=== PATIENT | male | born 1955 | race Caucasian/White ===

== ENCOUNTER 2017-11-07 12:38 | Emergency (ER) | payer BC ==
--- NOTE | 2017-11-07 13:16 | EDM.PDOC ---
ED HPI GENERAL MEDICAL PROBLEM - General Chief Complaint: Gastrointestinal Problem Stated Complaint: DIZZINESS/NAUSEA Time Seen by Provider: 11/07/17 13:10 Source of Information: Reports: Patient History Limitations: Reports: No Limitations - History of Present Illness INITIAL COMMENTS - FREE TEXT/NARRATIVE: Patient is a 62-year-old male with a history of hypertension, rheumatoid arthritis, and also chronic alcohol use who presents to the ED complaining of diarrhea, nausea, and dizziness started yesterday at noon. States she's had multiple episodes of diarrhea with no obvious blood present. States his stomach does feel irritated at times. He has been eating as normal and notes that his appetite is mildly poor. There's been no recent sick exposures. No changes in medications. He has no history of C. difficile or ingestion of any bad or questionable food. States the dizziness is worse with standing relieved with laying down. Denies any fever, chest pain, shortness of breath, or dysuria. There's been no documented rash. - Related Data Allergies Allergy/AdvReac Type Severity Reaction Status Date / Time abatacept [From Orencia] Allergy Rash Verified 11/07/17 12:58 Home Meds: Home Meds Celecoxib [CeleBREX] 200 mg PO DAILY 11/07/17 [History] Folic Acid 1 mg PO DAILY 11/07/17 [History] Losartan Potassium 25 mg PO DAILY 11/07/17 [History] Methotrexate 2.5 mg PO WEEKLY 11/07/17 [History] Ondansetron [Zofran ODT] 4 mg PO Q6H PRN #12 tab.dis 11/07/17 [Rx] Past Medical History Cardiovascular History: Reports: Hypertension Gastrointestinal History: Reports: Helicobacter Pylori Musculoskeletal History: Reports: RA Social & Family History - Family History Family Medical History: Noncontributory - Tobacco Use Smoking Status *Q: Current Every Day Smoker Years of Tobacco use: 50 Packs/Tins Daily: 1 Second Hand Smoke Exposure: No - Caffeine Use Caffeine Use: Reports: Coffee, Soda - Alcohol Use Days Per Week of Alcohol Use: 7 Number of Drinks Per Day: 4 Total Drinks Per Week: 28 Date of Last Drink: 11/06/17 Time of Last Drink: 15:00 - Recreational Drug Use Recreational Drug Use: No ED ROS GENERAL - Review of Systems Review Of Systems: ROS reveals no pertinent complaints other than HPI. ED EXAM, GI/ABD - Physical Exam Exam: See Below Exam Limited By: No Limitations General Appearance: Alert, WD/WN, No Apparent Distress Ears: Hearing Grossly Normal Nose: Normal Inspection Throat/Mouth: Normal Inspection, Normal Voice, No Airway Compromise, Other ( Mildly dry oral mucosa) Neck: Normal Inspection, Supple Respiratory/Chest: No Respiratory Distress, Lungs Clear, Normal Breath Sounds, No Accessory Muscle Use Cardiovascular: Normal Peripheral Pulses, Regular Rate, Rhythm GI/Abdominal Exam: Normal Bowel Sounds, Soft, Non-Tender, No Organomegaly, No Distention Back Exam: Normal Inspection Extremities: Normal Inspection Neurological: Alert, Oriented, CN II-XII Intact, Normal Cognition, No Motor/ Sensory Deficits Psychiatric: Normal Affect, Normal Mood Skin Exam: Warm, Dry, Intact, Normal Color Course - Vital Signs Last Recorded V/S: Last Vital Signs Temp 98.1 F 11/07/17 12:51 Pulse 101 H 11/07/17 12:51 Resp 18 11/07/17 12:51 BP 129/107 H 11/07/17 12:51 Pulse Ox 94 L 11/07/17 12:51 Orthostatic Blood Pressure [ 151/101 Standing] Orthostatic Blood Pressure [ 150/98 Sitting] Orthostatic Blood Pressure [ 150/101 Supine] - Orders/Labs/Meds Orders: Active Orders 24 hr Category Date Time Status EKG Documentation Completion [RC] STAT Care 11/07/17 13:30 Active Hemoccult [Fecal Occult Blood Collection] [RC] Care 11/07/17 13:34 Active ASDIRECTED Orthostatic Vital Signs [RC] ASDIRECTED Care 11/07/17 13:30 Active Peripheral IV Care [RC] . DIRECTED Care 11/07/17 13:32 Active C DIFFICILE BY PCR W/NAP1 [MOLEC] Stat Lab 11/07/17 13:32 Ordered NOROVIRUS GROUP 1 & 2 RT-PCR Stat Lab 11/07/17 13:32 Ordered Peripheral IV Insertion Adult [OM.PC] Stat Oth 11/07/17 13:30 Ordered Labs: Laboratory Tests 11/07/17 11/07/17 11/07/17 Range/Units 13:15 13:20 13:20 WBC 10.16 H (4.23-9.07) K/mm3 RBC 5.15 (4.63-6.08) M/mm3 Hgb 15.9 (13.7-17.5) gm/L Hct 46.4 (40.1-51.0) % MCV 90.1 (79.0-92.2) fl MCH 30.9 (25.7-32.2) pg MCHC 34.3 (32.2-35.5) g/dl RDW Std Deviation 46.1 H (35.1-43.9) fL Plt Count 274 (163-337) K/mm3 MPV 9.8 (9.4-12.3) fl Neut % (Auto) 63.1 (34.0-67.9) % Lymph % (Auto) 25.3 (21.8-53.1) % [place] % (Auto) 8.1 (5.3-12.2) % Eos % (Auto) 3.0 (0.8-7.0) Baso % (Auto) 0.3 (0.1-1.2) % Neut # (Auto) 6.42 H (1.78-5.38) K/mm3 Lymph # (Auto) 2.57 (1.32-3.57) K/mm3 [place] # (Auto) 0.82 (0.30-0.82) K/mm3 Eos # (Auto) 0.30 (0.04-0.54) K/mm3 Baso # (Auto) 0.03 (0.01-0.08) K/mm3 PT 10.0 (8.0-13.0) SECONDS INR 0.92 APTT 28 (22-36) SECONDS Sodium (136-145) mEq/L Potassium (3.5-5.1) mEq/L Chloride (98-107) mEq/L Carbon Dioxide (21-32) mEq/L Anion Gap (5-15) BUN (7-18) mg/dL Creatinine (0.7-1.3) mg/dL Est Cr Clr Drug Dosing mL/min Estimated GFR (MDRD) (>60) mL/min BUN/Creatinine Ratio (14-18) Glucose (80-115) mg/dL Lactic Acid (0.4-2.0) mmol/L Calcium (8.5-10.1) mg/dL Magnesium (1.8-2.4) mg/dl Total Bilirubin (0.2-1.0) mg/dL AST (15-37) U/L ALT (16-63) U/L Alkaline Phosphatase (46-116) U/L Troponin I (0.00-0.056) ng/mL Total Protein (6.4-8.2) g/dl Albumin (3.4-5.0) g/dl Globulin gm/dL Albumin/Globulin Ratio (1-2) Lipase (73-393) U/L Urine Color Yellow (Yellow) Urine Appearance Clear (Clear) Urine pH 7.0 (5.0-8.0) Ur Specific [place] 1.020 (1.005-1.030) Urine Protein Negative (Negative) Urine Glucose (UA) Negative (Negative) Urine Ketones Negative (Negative) Urine Occult Blood Negative (Negative) Urine Nitrite Negative (Negative) Urine Bilirubin Negative (Negative) Urine Urobilinogen 0.2 (0.2-1.0) Ur Leukocyte Esterase Negative (Negative) Urine RBC 0-5 (0-5) /hpf Urine WBC 0-5 (0-5) /hpf Ur Epithelial Cells 0-5 (0-5) /hpf Urine Bacteria Occasional (FEW) /hpf Urine Mucus Not seen (FEW) /hpf 11/07/17 11/07/17 Range/Units 13:20 13:45 WBC (4.23-9.07) K/mm3 RBC (4.63-6.08) M/mm3 Hgb (13.7-17.5) gm/L Hct (40.1-51.0) % MCV (79.0-92.2) fl MCH (25.7-32.2) pg MCHC (32.2-35.5) g/dl RDW Std Deviation (35.1-43.9) fL Plt Count (163-337) K/mm3 MPV (9.4-12.3) fl Neut % (Auto) (34.0-67.9) % Lymph % (Auto) (21.8-53.1) % [place] % (Auto) (5.3-12.2) % Eos % (Auto) (0.8-7.0) Baso % (Auto) (0.1-1.2) % Neut # (Auto) (1.78-5.38) K/mm3 Lymph # (Auto) (1.32-3.57) K/mm3 [place] # (Auto) (0.30-0.82) K/mm3 Eos # (Auto) (0.04-0.54) K/mm3 Baso # (Auto) (0.01-0.08) K/mm3 PT (8.0-13.0) SECONDS INR APTT (22-36) SECONDS Sodium 134 L (136-145) mEq/L Potassium 4.2 (3.5-5.1) mEq/L Chloride 100 (98-107) mEq/L Carbon Dioxide 25 (21-32) mEq/L Anion Gap 13.2 (5-15) BUN 15 (7-18) mg/dL Creatinine 0.8 (0.7-1.3) mg/dL Est Cr Clr Drug Dosing 95.74 mL/min Estimated GFR (MDRD) > 60 (>60) mL/min BUN/Creatinine Ratio 18.8 H (14-18) Glucose 100 (80-115) mg/dL Lactic Acid 1.7 (0.4-2.0) mmol/L Calcium 9.4 (8.5-10.1) mg/dL Magnesium 2.0 (1.8-2.4) mg/dl Total Bilirubin 0.3 (0.2-1.0) mg/dL AST 21 (15-37) U/L ALT 26 (16-63) U/L Alkaline Phosphatase 127 H (46-116) U/L Troponin I < 0.017 (0.00-0.056) ng/mL Total Protein 7.5 (6.4-8.2) g/dl Albumin 3.7 (3.4-5.0) g/dl Globulin 3.8 gm/dL Albumin/Globulin Ratio 1.0 (1-2) Lipase 130 (73-393) U/L Urine Color (Yellow) Urine Appearance (Clear) Urine pH (5.0-8.0) Ur Specific [place] (1.005-1.030) Urine Protein (Negative) Urine Glucose (UA) (Negative) Urine Ketones (Negative) Urine Occult Blood (Negative) Urine Nitrite (Negative) Urine Bilirubin (Negative) Urine Urobilinogen (0.2-1.0) Ur Leukocyte Esterase (Negative) Urine RBC (0-5) /hpf Urine WBC (0-5) /hpf Ur Epithelial Cells (0-5) /hpf Urine Bacteria (FEW) /hpf Urine Mucus (FEW) /hpf Meds: Medications Discontinued Medications Generic Name Dose Route Start Last Admin Trade Name Freq PRN Reason Stop Dose Admin Sodium Chloride 1,000 mls @ 1,000 mls/hr 11/07/17 13:30 11/07/17 13:55 Normal Saline IV 11/07/17 14:29 1,000 mls/hr .BOLUS STA Administration Ondansetron HCl 4 mg 11/07/17 13:36 11/07/17 13:56 Zofran IVPUSH 11/07/17 13:37 4 mg ONETIME ONE Administration Sodium Chloride 10 ml 11/07/17 13:30 11/07/17 13:55 Saline Flush FLUSH 10 ml ASDIRECTED PRN Administration Keep Vein Open - Re-Assessments/Exams Free Text/Narrative Re-Assessment/Exam: IV established with normal saline bolus. Initial labs and studies will include CBC, chem 14, coag studies, magnesium, lactic acid, troponin, UA, stool studies , and EKG. Orthostatic vital signs will be obtained as well. IV bolus of normal saline has been ordered and zofran 4mg IVP. Orthostatic vital signs were positive. Labs reviewed: CBC essentially normal. Chemistry panel revealed sodium 134 otherwise unremarkable. Alkaline phosphatase status was elevated at 127. Troponin less than 0.017. Lactic acid 1.7. Magnesium 2.0. Lipase 130. UA concerning findings. 11/07/17 15:28 Per nursing staff patient feels a lot better after receiving fluids. Vital signs are normalized. Orthostatics were negative. Patient is wishing to go home. Unable to provide a stool sample. States it's all air at this point. We'll discharge patient home with instructions. Most likely etiology of current complaint is viral. Departure - Departure Time of Disposition: 15:29 Disposition: Home, Self-Care 01 Condition: Good Clinical Impression: Abdominal pain, Diarrhea, Viral diarrhea - Discharge Information Prescriptions: Ondansetron [Zofran ODT] 4 mg PO Q6H PRN #12 tab.dis PRN Reason: Nausea/Vomiting Instructions: Viral Gastroenteritis, Adult, [id number], Dehydration, Adult, [id number] Referrals: PCP,None [Primary Care Provider] - Forms: ED Department Discharge Additional Instructions: As discussed etiology of current complaint is viral most likely and will run its course improving over the next few days. Treatment will be push the fluids gatorade, powerade, pedialyte, and water. Refrain from any fruit juices, raw vegetables or fruits, spicy foods, or dairy products. Stick with a bland diet such as toast or crackers. May advance to normal diet once the diarrhea subsides. Follow-up with PCP this week if required. Return to the ED if you develop any new or worsening symptoms. Refrain from any alcohol use. If you develop any nausea can take Zofran 4 mg ODT every 6 hours as needed. - My Orders Last 24 Hours: My Active Orders 11/07/17 13:30 EKG Documentation Completion [RC] STAT Orthostatic Vital Signs [RC] ASDIRECTED Peripheral IV Insertion Adult [OM.PC] Stat 11/07/17 13:32 Peripheral IV Care [RC] . DIRECTED C DIFFICILE BY PCR W/NAP1 [MOLEC] Stat NOROVIRUS GROUP 1 & 2 RT-PCR Stat 11/07/17 13:34 Hemoccult [Fecal Occult Blood Collection] [RC] ASDIRECTED - Assessment/Plan Last 24 Hours: My Active Orders 11/07/17 13:30 EKG Documentation Completion [RC] STAT Orthostatic Vital Signs [RC] ASDIRECTED Peripheral IV Insertion Adult [OM.PC] Stat 11/07/17 13:32 Peripheral IV Care [RC] . DIRECTED C DIFFICILE BY PCR W/NAP1 [MOLEC] Stat NOROVIRUS GROUP 1 & 2 RT-PCR Stat 11/07/17 13:34 Hemoccult [Fecal Occult Blood Collection] [RC] ASDIRECTED
[2017-11-07] MEDS ORDERED: Sodium Chloride 0.9% 10 ML Syringe FLUSH PRN (13:30)
[2017-11-07] MEDS ORDERED: Sodium Chloride 0.9% 1,000 ML IV STA (13:30)
[2017-11-07] MEDS ORDERED: Ondansetron 4 MG/2 ML SDV IVPUSH ONE (13:36)
== END 2017-11-07 15:46 | disposition home or self-care (01) ==
LOC: JD.ED 12:38
DX: A08.4 Viral intestinal infection, unspecified (principal); I10 Essential (primary) hypertension; F17.210 Nicotine dependence, cigarettes, uncomplicated; Z79.899 Other long term (current) drug therapy
CPT/HCPCS: 36415; 80053; 81001; 83605; 83690; 83735; 84484; 85025; 85610; 85730; 93005; 96361; 96374; 99284; J2405; J7040; J7050